=== PATIENT | female | born 1940 | race Caucasian/White ===

== ENCOUNTER → 2017-03-16 | Outpatient (CLI) | payer MEDICARE, OTHER ==
--- NOTE | 2017-03-16 14:44 | MRI ---
EXAM DESCRIPTION: Cervical Spine: MRI. CLINICAL HISTORY: RADICULOPATHY, CERVICAL COMPARISON: MRI lumbar spine 06/06/2014. TECHNIQUE: Multiplanar MRI, multiple sequences, non-contrast High-field. FINDINGS: C3-4: Minimal disc desiccation. Grade 1 anterolisthesis. Posterior midline disc bulge 3 mm with annular fissure abutting the ventral cord. Moderate right facet arthrosis with normal left facet. Uncinate spur on the right resulting in neural foraminal stenosis. Minimal narrowing left neural foramen. Mild canal narrowing. C4-5: Disc desiccation and disc space loss. Anterior bulging. Posterior broad-based 3 mm disc bulge abutting the cord. Bilateral uncinate spurs with moderate right neural foraminal narrowing. Mild left neural foraminal stenosis. Canal nearly stenotic. Normal facet joints. C5-6: Minimal disc space loss disc desiccation. Anterior bulging. Posterior midline disc protrusion 4 mm impressing on the ventral cord with annular fissure. Bilateral mild neural foraminal narrowing. Minimal arthrosis right facet. C6-7 disc desiccation and minimal disc space loss. Anterior bulging. Midline posterior bulge 3 mm. Right intraforaminal protrusion 4.5 mm resulting in mild neural foraminal stenosis and impingement of the exiting right 7th nerve. Left neuroforamen patent. Minimal arthrosis left facet. Normal signal in the remaining discs with no bulging. Disc spaces preserved. Canal and neural foramina are patent. Nerve root sleeve cyst in the right C7-T1 neural foramen. Arthrosis in the right C7-T1 facet. Facets . No cord compression or cord edema. Spine is slightly kyphotic. Atlantoaxial joint is minimally degenerated. Base of the cerebellar tonsils is above the foramen magnum. Paravertebral soft tissues negative. Vertebral bodies are not compressed at any level. Normal marrow signal in the remaining vertebral bodies and the posterior elements. IMPRESSION: 1. Grade 1 anterolisthesis C3-4. Posterior midline disc bulge with annular fissure. Arthrosis right facet and uncinate spur resulting in right neural foraminal stenosis. Correlate for right C4 radiculopathy. 2. Posterior broad-based C4-5 disc bulge 3 mm. Mild left neural foraminal stenosis by uncinate spur. Correlate for left C5 radiculopathy. 3. Posterior midline C5-6 disc protrusion. Borderline mild central canal stenosis. 4. Right intraforaminal protrusion of the C6-7 disc resulting in mild neural foraminal stenosis and impingement of the exiting right C7 nerve. Electronically signed by: Mina Braxton MD 03/16/2017 2:43 PM [facility]
== END | disposition home or self-care (01) ==
LOC: MRI 08:53
PROVIDERS: ATTEND Family Medicine
DX: M54.12 Radiculopathy, cervical region (principal)

== ENCOUNTER → 2017-06-21 | Outpatient (CLI) | payer OTHER | LOC: GMAL 11:35 | PROVIDERS: ATTEND Family Medicine | DX: D51.3 Other dietary vitamin B12 deficiency anemia (principal); R53.83 Other fatigue; E55.9 Vitamin D deficiency, unspecified ==

== ENCOUNTER → 2017-08-04 | Outpatient (CLI) | payer OTHER | LOC: GMAL 10:38 | PROVIDERS: ATTEND Family Medicine | DX: E03.9 Hypothyroidism, unspecified (principal) ==

== ENCOUNTER → 2018-09-23 | Outpatient (CLI) | payer OTHER | LOC: GMAL 12:16 | PROVIDERS: ATTEND Family Medicine | DX: D51.3 Other dietary vitamin B12 deficiency anemia (principal); R53.83 Other fatigue; E55.9 Vitamin D deficiency, unspecified; I10 Essential (primary) hypertension; R73.9 Hyperglycemia, unspecified; E78.49 Other hyperlipidemia ==

== ENCOUNTER → 2019-12-25 | Outpatient (CLI) | payer OTHER | LOC: GMAL 10:57 | PROVIDERS: ATTEND Family Medicine | DX: E03.9 Hypothyroidism, unspecified (principal); I10 Essential (primary) hypertension; R73.9 Hyperglycemia, unspecified; E78.49 Other hyperlipidemia ==

== ENCOUNTER → 2020-04-24 | Outpatient (CLI) | payer OTHER | LOC: GMAL 15:03 | PROVIDERS: ATTEND Family Medicine | DX: E03.9 Hypothyroidism, unspecified (principal); M10.9 Gout, unspecified; I10 Essential (primary) hypertension; R73.9 Hyperglycemia, unspecified; M79.7 Fibromyalgia ==